=== PATIENT | male | born 1955 | race Caucasian/White ===

== ENCOUNTER 2022-01-05 08:25 | Emergency (ER) | payer BC ==
[~2022-01-05] VITALS: Ht 177.8 cm; Wt 97.7 kg
[2022-01-05 08:28] VITALS: BP 161/92
[2022-01-05] MEDS ORDERED: proparacaine 0.5% ophthalmic drops 15ml LEFTEYE ONE (08:40)
[2022-01-05] MEDS ORDERED: ERYT1OIN6 LEFTEYE (09:33)
[2022-01-05] MEDS ORDERED: erythromycin ophthalmic ointment 1gm tube LEFTEYE ONE (09:35)
--- NOTE | 2022-01-05 09:50 | NUR ---
Pt given and understands d/c instructions. Ambulatory with a steady gait.
== END 2022-01-05 09:50 | disposition home or self-care (01) ==
LOC: ER 08:25
DX: S05.02XA Injury of conjunctiva and corneal abrasion without foreign body, left eye, initial encounter (principal); X58.XXXA Exposure to other specified factors, initial encounter; Y93.89 Activity, other specified; Y92.89 Other specified places as the place of occurrence of the external cause; Y99.8 Other external cause status; I10 Essential (primary) hypertension; Z79.1 Long term (current) use of non-steroidal anti-inflammatories (NSAID)
CPT/HCPCS: 99283

== ENCOUNTER 2022-10-01 09:46 | Inpatient (IN) | payer BC ==
[~2022-10-01] VITALS: Ht 177.8 cm; Wt 97.7 kg
[2022-10-01] MEDS ORDERED: iohexol 350MG/ML 100ml bottle IV ONE (11:56)
[2022-10-01 12:18] LABS: BASOPHILS % (AUTO) 0.4 % (0-1); EOSINOPHILS # (AUTO) 0.3 X10'3 (0-0.9); EOSINOPHILS % (AUTO) 4.1 % (0-6); HEMATOCRIT 46.7 % (42.0-52.0); HEMOGLOBIN 15.8 g/dl (14.0-17.9); LYMPHOCYTES # (AUTO) 1.7 X10'3 (1.1-4.8); LYMPHOCYTES % (AUTO) 27.3 % (21-51); MEAN CORPUSCULAR HEMOGLOBIN 31.8 PG (27.0-31.0); MEAN CORPUSCULAR HGB CONC 33.7 g/dL (33.0-36.5); MEAN CORPUSCULAR VOLUME 94.4 FL (78-98); MEAN PLATELET VOLUME 6.5 FL (7.4-10.4); MONOCYTES # (AUTO) 0.4 X10'3 (0-0.9); MONOCYTES % (AUTO) 7.1 % (2-12); NEUTROPHILS # (AUTO) 3.8 X10'3 (1.8-7.7); NEUTROPHILS % (AUTO) 61.1 % (42-75); PLATELET COUNT 258 X10'3 (140-440); RED BLOOD COUNT 4.95 X10'6 (4.70-6.10); RED CELL DISTRIBUTION WIDTH 13.4 % (11.5-14.5); WHITE BLOOD COUNT 6.3 X10'3 (4.5-11.0)
[2022-10-01 12:33] LABS: APTT 30 SECONDS (22-32)
[2022-10-01 12:35] LABS: ALANINE AMINOTRANSFERASE 36 U/L (12-78); ALBUMIN/GLOBULIN RATIO 1.1 (1.1-1.5); ALKALINE PHOSPHATASE 93 IU/L (46-116); ANION GAP 1 (8-16); ASPARTATE AMINO TRANSFERASE 23 U/L (10-37); BILIRUBIN,TOTAL 0.3 MG/DL (0.1-1.0); BLOOD UREA NITROGEN 13 MG/DL (7-18); BUN/CREATININE RATIO 13.1 (10.0-20.0); CALCIUM 9.1 MG/DL (8.5-10.1); CHLORIDE 106 MMOL/L (99-107); CREATININE 0.99 MG/DL (0.60-1.10); GLUCOSE 95 MG/DL (70-104); POTASSIUM 4.9 MMOL/L (3.5-5.1); SODIUM 138 MMOL/L (135-145); TOTAL CARBON DIOXIDE 31.3 MMOL/L (24-32); TOTAL PROTEIN 7.6 G/DL (6.4-8.2); eGFR 75 ML/MIN
[2022-10-01 14:38] LABS: CLARITY,URINE CLEAR (Clear); COLOR,URINE YELLOW (Yellow); GLUCOSE, URINE NEGATIVE (Neg); KETONES,URINE NEGATIVE (Neg); LEUKOCYTE ESTERASE ,URINE NEGATIVE (Neg); OCCULT BLOOD,URINE NEGATIVE (Neg); PROTEIN,URINE NEGATIVE (Neg); UROBILINOGEN,URINE 0.2 E.U/dL (0.2-1.0)
[2022-10-01 14:40] LABS: NITRITES, URINE NEGATIVE (Neg); PH,URINE 5.5 (4.8-8.0)
[2022-10-01 14:42] LABS: UA COLLECTION TYPE VOIDED
[2022-10-01] MEDS ORDERED: clopidogrel 75mg tablet PO STA (14:46)
[2022-10-01 14:48] LABS: URINE AMPHETAMINE SCREEN NEGATIVE (Neg); URINE BARBITUATE SCREEN NEGATIVE (Neg); URINE BENZODIAZEPINES SCREEN NEGATIVE (Neg); URINE CANNABINOID SCREEN POSITIVE (Neg); URINE COCAINE SCREEN NEGATIVE (Neg); URINE METHADONE SCREEN NEGATIVE (Neg); URINE OPIATE SCREEN NEGATIVE (Neg); URINE PHENCYCLIDINE SCREEN NEGATIVE (Neg)
[2022-10-01] MEDS ORDERED: aspirin 81mg tab.chew PO ONE (14:50)
[2022-10-01] MEDS ORDERED: ROSU5TAB12 (15:16)
[2022-10-01] MEDS ORDERED: ASPI-611 PO (15:16)
[2022-10-01] MEDS ORDERED: LOSA25TA41 PO (15:16)
[2022-10-01] MEDS ORDERED: SILD100T70 PO (15:16)
[2022-10-01] MEDS ORDERED: mag hydrox/Alum hydrox/simeth 30ml oral suspension PO PRN (16:15)
[2022-10-01] MEDS ORDERED: ondansetron/PF 4mg/2ml inj IV PRN (16:15)
[2022-10-01] MEDS ORDERED: acetaminophen 325mg tablet PO PRN ×2 (16:15)
[2022-10-01] MEDS ORDERED: HYDROcodone/acetaminophen 5mg/325mg tablet PO PRN (16:15)
[2022-10-01] MEDS ORDERED: morphine 2 MG/ML inj. syringe IV PRN ×2 (16:15)
[2022-10-01] MEDS ORDERED: magnesium hydroxide 30ml (MOM) UD suspension PO PRN (16:15)
[2022-10-01 17:18] LABS: CHOL/HDL RATIO 3.3 (0.00-4.99); CHOLESTEROL 153 MG/DL (0-200); HDL CHOLESTEROL 47 MG/DL (35-60); LDL CHOLESTEROL 77 MG/DL (50-100); TRIGLYCERIDES 95 MG/DL (20-135)
[2022-10-01 17:21] LABS: HEMOGLOBIN A1C 5.7 % (4.5-6.2)
--- NOTE | 2022-10-01 18:57 | NUR ---
FOOD TRAY PROVIDED
[2022-10-01] MEDS ORDERED: docusate sod 100mg capsule PO SCH (20:00)
--- NOTE | 2022-10-01 20:29 | NUR ---
PT PLACED ONTO AN INPATIENT BED
[2022-10-02 03:00] VITALS: BP 137/83
--- NOTE | 2022-10-02 03:01 | NUR ---
REPORT CALLED TO FLOOR NURSE PT TX TO ROOM 2042 BY NURSE
--- NOTE | 2022-10-02 03:13 | NUR ---
admitted to from ED via WC. Explained risk of no IV in the event of a cardiac arrest. Verbalizes understanding of info given. Sts he prefers to refuse an IV at this time.
[2022-10-02 04:00] VITALS: BP 140/75
[2022-10-02 05:53] LABS: HEMOGLOBIN 14.9 g/dl (14.0-17.9); MEAN PLATELET VOLUME 6.6 FL (7.4-10.4); WHITE BLOOD COUNT 6.1 X10'3 (4.5-11.0)
[2022-10-02 05:55] LABS: BASOPHILS % (AUTO) 0.3 % (0-1); EOSINOPHILS # (AUTO) 0.3 X10'3 (0-0.9); EOSINOPHILS % (AUTO) 4.1 % (0-6); HEMATOCRIT 44.1 % (42.0-52.0); LYMPHOCYTES # (AUTO) 1.9 X10'3 (1.1-4.8); LYMPHOCYTES % (AUTO) 30.7 % (21-51); MEAN CORPUSCULAR HEMOGLOBIN 31.5 PG (27.0-31.0); MEAN CORPUSCULAR HGB CONC 33.8 g/dL (33.0-36.5); MEAN CORPUSCULAR VOLUME 93.2 FL (78-98); MONOCYTES # (AUTO) 0.4 X10'3 (0-0.9); MONOCYTES % (AUTO) 6.7 % (2-12); NEUTROPHILS # (AUTO) 3.6 X10'3 (1.8-7.7); NEUTROPHILS % (AUTO) 58.2 % (42-75); PLATELET COUNT 246 X10'3 (140-440); RED BLOOD COUNT 4.73 X10'6 (4.70-6.10); RED CELL DISTRIBUTION WIDTH 13.8 % (11.5-14.5)
[2022-10-02 05:56] LABS: ALBUMIN 3.6 G/DL (3.4-5.0); ANION GAP 2 (8-16); BLOOD UREA NITROGEN 16 MG/DL (7-18); BUN/CREATININE RATIO 15.2 (10.0-20.0); CALCIUM 8.7 MG/DL (8.5-10.1); CHLORIDE 106 MMOL/L (99-107); CREATININE 1.05 MG/DL (0.60-1.10); GLUCOSE 91 MG/DL (70-104); POTASSIUM 3.7 MMOL/L (3.5-5.1); SODIUM 136 MMOL/L (135-145); TOTAL CARBON DIOXIDE 28.4 MMOL/L (24-32); eGFR 70 ML/MIN
--- NOTE | 2022-10-02 07:33 | NUR ---
Paged Dr Junior to see if patient is receiving any further tests, as patient would like to go home
--- NOTE | 2022-10-02 07:33 | NUR ---
Patient in room ICU 2042. I have received report from Ni BOYCE and had the opportunity to ask questions and assume patient care.
--- NOTE | 2022-10-02 07:47 | NUR ---
paged Dr. Junior patient would like to know if he needs any more tests because he would like to go home
[2022-10-02 08:00] VITALS: BP 129/73
[2022-10-02] MEDS ORDERED: losartan 25mg tablet PO SCH (08:00)
[2022-10-02] MEDS ORDERED: aspirin 81mg, enteric-coated 1 TAB TABLET.DR PO SCH ×2 (08:00)
[2022-10-02] MEDS ORDERED: enoxaparin 40mg/0.4ml syringe SUBCUT SCH (08:00)
[2022-10-02] MEDS ORDERED: atorvastatin 20mg tablet PO SCH (08:00)
[2022-10-02 08:33] VITALS: BP_SYST 153
--- NOTE | 2022-10-02 10:26 | NUR ---
Patient discharged and walked out of hospital with x1 RN. Patient disconnected from ICU monitors and did not have an IV at time of discharge. All of patient discharge instructions were discussed with patient, including when to take next dose of home medications. Patient was given time for question and answers and felt satisfied with the discharge information presented to him. Patient alert, oriented and in no apparent distress at time of discharge. Addendum: 10/02/22 at 1030 by Karie Collins RN All belongings left with patient.
== END 2022-10-02 10:22 | disposition home or self-care (01) | DRG 69 ==
LOC: ER 09:46 → ED HOLD 16:20 → ICU 2S 10-02 03:03
PROVIDERS: ADMIT Internal Medicine; ATTEND Internal Medicine
PROC: B3251ZZ Computerized Tomography (CT Scan) of Bilateral Common Carotid Arteries using Low Osmolar Contrast (ICD-10-PCS; principal; 2022-10-01)
PROC: B32G1ZZ Computerized Tomography (CT Scan) of Bilateral Vertebral Arteries using Low Osmolar Contrast (ICD-10-PCS; 2022-10-01)
PROC: B32R1ZZ Computerized Tomography (CT Scan) of Intracranial Arteries using Low Osmolar Contrast (ICD-10-PCS; 2022-10-01)
PROC: B3281ZZ Computerized Tomography (CT Scan) of Bilateral Internal Carotid Arteries using Low Osmolar Contrast (ICD-10-PCS; 2022-10-01)
DX: G45.9 Transient cerebral ischemic attack, unspecified (principal); F17.220 Nicotine dependence, chewing tobacco, uncomplicated; E78.5 Hyperlipidemia, unspecified; F17.290 Nicotine dependence, other tobacco product, uncomplicated; I10 Essential (primary) hypertension; Z79.82 Long term (current) use of aspirin; Z79.899 Other long term (current) drug therapy
CPT/HCPCS: 36415; 70450; 70496; 70498; 70551; 71045; 80048; 80053; 80061; 80305; 81003; 83036; 83880; 85025; 85610; 85651; 85730; 93306; 99285; G0378; J3490; Q9967